=== PATIENT | female | born 1980 | race Two or more races ===

== ENCOUNTER 2018-01-20 23:07 | Emergency (ER) | payer SELFPAY ==
[~2018-01-20] VITALS: Ht 172.7 cm; Wt 61.2 kg
[2018-01-20 23:15] VITALS: BP 143/90
[2018-01-20] MEDS ORDERED: BUSPAR10 MG ORAL (23:27)
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
[2018-01-20] MEDS ORDERED: LORazepam Inj 2mg/ml 1ml IM ONE (23:30)
[2018-01-21 00:15] VITALS: BP 143/90
== END 2018-01-21 00:15 | disposition home or self-care (01) ==
LOC: EDBD 23:07 → EMR 23:22
DX: F41.9 Anxiety disorder, unspecified (principal); R42 Dizziness and giddiness; R06.02 Shortness of breath; R00.2 Palpitations
CPT/HCPCS: 96372; 99283